=== PATIENT | male | born 1965 | race Caucasian/White ===

== ENCOUNTER → 2016-07-22 | Outpatient (CLI) | payer BC, OTHER ==
--- NOTE | ~2016-07-22 | SLE ---
[facility] [address] [place] [address] POLYSOMNOGRAPHY STUDY Name: KURT GREENDAVON) Room #: REG [facility]#: [id number] Admission: 07/22/16 Attend Phys: Jefferson Queen MD Discharge: Date of : 65 Report #: [id number] THIS REPORT FOR: //name// CC: Jefferson Queen FAM unknown Demetrius Torrez MD HISTORY: The patient had sleep study on 03/14/2016. HOME STUDY: Apnea-hypopnea index is 70 events per recording hour with positional component. Low oxygen saturation 79%. COMMENTS: CPAP TITRATION: Titrated at 6, 8, 10, 11, 12 and 13 cm water pressure. At 13 cm water pressure, the patient was seen for 44 minutes of which 37 minutes was in REM sleep. Central apnea 12, hypopnea 2, apnea-hypopnea index of 19 events per sleep hour, low oxygen saturation 90%. IMPRESSION: 1. History of obstructive sleep apnea, 327.23. 2. CPAP improves, however, does not totally correct apnea-hypopnea index, snoring and desaturation. 3. Central events noted. At 13 cm water pressure, the central apnea index was 16 events per recording hour. 4. No significant arrhythmia noted. SUGGESTIONS: 1. In addition to specific therapy, the patient should be cautioned regarding driving or operating dangerous machinery unless fully alert. 2. The patient should be cautioned regarding the use of respiratory depressants. 3. Weight loss and TSH if indicated. 4. Oral appliance or appropriate surgery may be considered with appropriate followup. 5. If central events persist, further evaluation recommended. 6. An auto-titrating CPAP between 10 and 16 cm water pressure is initially recommended. During our study, an Raina full facemask, small was used with heated humidity. 7. If signs and symptoms not improved with therapy, further evaluation recommended. Please do not hesitate to contact me if I may be of further assistance. <ELECTRONICALLY SIGNED> By: Jefferson Queen MD 07/25/16 [id number] [id number] 1830 Jefferson Queen MD /nt
== END ==
LOC: SLEEPLAB 11:02
DX: G47.33 Obstructive sleep apnea (adult) (pediatric) (principal)

== ENCOUNTER → 2018-11-16 | Outpatient (CLI) | payer BC, OTHER ==
--- NOTE | 2018-11-19 06:08 | SLE ---
[facility] [address] [place] [address] POLYSOMNOGRAPHY STUDY Name: DAVON GREEN Room #: REG [facility].#: [id number] Admission: 11/16/18 ������������������ Attend Phys: Dionisio Vasques MD Discharge: ������������������ Date of : 65 Report #: [id number] THIS REPORT FOR: //name// CC: Dionisio Vasques FAM unknown Justin Nix MD DATE OF SERVICE: 11/17/2018 ATTENDING PHYSICIAN: Justin Nix M.D. INTERPRETATION: The patient is 52 years old who weighs 190 pounds with a BMI of 28.9. The patient has a history of severe sleep apnea based on testing performed in March of 2016. It was complex sleep apnea with an AHI of 70 per hour. The patient has been on CPAP at 13 cm of water; however, the patient's AHI was 19 per hour with a central apnea index of 16 per hour. The patient has been clinically symptomatic as well. As a result, the patient was referred back for a CPAP/BiPAP titration study. During the night study, the patient spent 398 minutes in bed and slept for 329 minutes with a sleep efficiency of 83%. Sleep latency was 10 minutes with a REM latency of 16.5 minutes, which was short. Overall, sleep architecture showed increased stage 1 and stage 2 sleep, reduced N3 sleep and reduced REM sleep. EKG monitoring revealed an average heart rate of 58 beats per minute with a maximum of 83 beats per minute. No sustained arrhythmias observed. PLMS are seen at an index of 24 per hour and 3 per hour caused EEG arousals. The patient was started on CPAP at 12 cm of water and titrated to 15 cm water. The patient was then switched to BiPAP starting at a pressure of 17/13 and the maximum pressure that was reached was 23/18. At that pressure, the patient slept for 41 minutes. The patient had supine sleep, but no REM sleep. The patient's AHI was reduced to 0 per hour and oxygen saturation remained above 94%. REM sleep was not seen at that pressure. IMPRESSION: 1. Sleep apnea diagnosed by previous sleep study. 2. Moderate periodic limb movements. RECOMMENDATIONS: 1. BiPAP at 23/18, completely eliminated the patient's sleep apnea and should be used on a nightly basis. 2. Follow up in 4-6 weeks to assess compliance with BiPAP and to document clinical improvement. 3. Weight loss is strongly advised. [address] [address] POLYSOMNOGRAPHY STUDY Name: DAVON GREEN [id number] Admission: 11/16/18 ������������������ Attend Phys: Dionisio Vasques MD Discharge: ������������������ Date of : 65 Report #: [id number] 4. Avoid RESIDENTIAL [employer]ERAP[employer] depressants. 5. Cautioned regarding driving until symptoms of sleep apnea resolve with the use of BiPAP. ��������������������������������������������� <ELECTRONICALLY SIGNED> ���������������������������������������� By: Dionisio Vasques MD ��������������������������������������������� 11/19/18 06 39 2140 Dionisio Vasques MD /farhana
== END ==
LOC: SLEEPLAB 15:04
DX: G47.31 Primary central sleep apnea (principal); G47.61 Periodic limb movement disorder